=== PATIENT | male | born 1955 | race Caucasian/White ===

== ENCOUNTER 2016-10-05 04:22 | Day surgery (SDC) | payer BC ==
[2016-10-03 09:33] LABS: BASOPHILS 0.2 %; BASOPHILS ABSOLUTE 0.01 10/3/uL (0.0-0.16); EOSINOPHILS 5.7 %; EOSINOPHILS ABSOLUTE 0.29 10/3/uL (0.0-0.53); HEMOGLOBIN 14.5 g/dL (13.6-17.8); IMMATURE GRANULOCYTES 0.2 %; IMMATURE GRANULOCYTES ABSOLUTE 0.01 10/3/uL (0.0-0.11); LYMPHOCYTES 29.8 %; LYMPHOCYTES ABSOLUTE 1.52 10/3/uL (0.67-4.30); MEAN CORPUS HGB CONC 35.2 g/dL (32.0-36.0); MEAN CORPUSCULAR HEMOGLOB 32.2 pg (26.0-34.0); MEAN CORPUSCULAR VOLUME 91.4 fL (80-100); MONOCYTES 5.7 %; MONOCYTES ABSOLUTE 0.29 10/3/uL (0.21-1.20); NEUTROPHILS 58.4 %; NEUTROPHILS ABSOLUTE 2.98 10/3/uL (2.02-8.40); PLATELET COUNT 177 10/3/uL (150-400); RBC DISTRIBUTION WIDTH 13.6 % (12.0-16.0); RED CELL COUNT 4.51 10/6/uL (4.7-6.1); WHITE BLOOD CELLS 5.1 10/3/uL (4.5-10.5)
[2016-10-03 09:35] LABS: HEMATOCRIT 41.2 % (40.0-51.0); MANUAL DIFF NO %
[2016-10-03 10:02] LABS: A/G RATIO 1.2 (0.7-1.9); ALBUMIN 3.9 G/DL (3.5-5.0); ALKALINE PHOSPHATASE 72 U/L (45-117); BUN (BLOOD UREA NITROGEN) 18 MG/DL (6-23); CALCIUM, SERUM 8.8 MG/DL (8.5-10.4); CHLORIDE, SERUM 103 MMOL/L (96-112); CO2 (CARBON DIOXIDE) 31 MMOL/L (24-34); CREATININE 1.17 MG/DL (0.70-1.30); GFR AFRICAN AMERICAN 76 ML/MIN (>=60); GFR NON AFRICAN AMERICAN 66 ML/MIN (>=60); GLOBULIN 3.3 G/DL (2.5-4.1); GLUCOSE, SERUM 118 MG/DL (60-99); POTASSIUM, SERUM 3.5 MMOL/L (3.5-5.3); SGOT(AST) 20 U/L (5-40); SGPT(ALT) 28 U/L (5-65); SODIUM, SERUM 144 MMOL/L (135-148); TOTAL BILIRUBIN 0.7 MG/DL (0-1.2); TOTAL PROTEIN 7.2 G/DL (6.0-8.5)
--- NOTE | ~2016-10-05 | OP ---
Record Of Operation [facility] [address] [place]. [address] NAME: WILLIE ASHLEY : 51 STATUS : [facility]#: [id number] AGE: 61 ADM/REG DATE : 10/05/16 MR#: [id number] REPORT SERV DATE: 10/07/16 DICTATED BY: JAVIER BECERRA DATE: 10/07/16 REPORT STATUS : Draft TRANSCRIBED BY: MODL DATE: 10/07/16 DATE OF PROCEDURE: 10/05/2016 PREOPERATIVE DIAGNOSES: 1. Ventral incisional hernia. 2. Right flank subcutaneous mass. POSTOPERATIVE DIAGNOSES: 1. Ventral incisional hernia. 2. Right flank subcutaneous mass. PROCEDURE PERFORMED: 1. Repair subxiphoid ventral incisional hernia with implantation of mesh. 2. Excision of right flank subcutaneous mass, less than 3 cm. SURGEON: Javier Becerra M.D. ANESTHESIA: General. ESTIMATED BLOOD LOSS: Minimal. SPECIMENS REMOVED: Right flank mass. BRIEF HISTORY: Mr. Ashley is a 61-year-old gentleman, who had an open heart procedure done a number of years ago. He has developed a ventral incisional hernia on the lower aspect of his incision and of course, is below his xiphoid. This has been growing, becoming tender and symptomatic. He presents today for repair. He also has a history of lipomas and has noticed a mass on his right flank that he wishes to have excised as well. DETAILS OF PROCEDURE: Following informed consent, the hernia and the mass were identified and marked in preoperative holding and confirming the proper site and location, the patient was then transferred to operative suite. After successful induction of general endotracheal anesthesia, an incision was made in the lower aspect of his subxiphoid incision overlying the palpable hernia defect. Dissection was carried through the skin and subcutaneous tissues. The hernia sac was clearly defined as was the fascial defect. We the hernia sac from the subcutaneous tissues sharply using Metzenbaum scissors and then reduced the hernia sac and developed a subfascial extraperitoneal plane circumferentially around the defect. Once this was accomplished, we measured the defect and opted to place a Ventralight ST medium ventral patch mesh. This was deployed in subfascial extraperitoneal location. The mesh was secured to the fascia using interrupted Ethibond sutures, and the mesh tabs were also secured to the fascial defect as well and trimmed to appropriate length. Once the mesh was secured to the fascia, it was approximated over the mesh using interrupted 0 Ethibond sutures. The wound was copiously irrigated. The skin edges were reapproximated using 3-0 Vicryl subdermals followed by 4-0 Monocryl subcuticular suture and Dermabond. Next, attention was directed to the right flank mass. An incision was made directly on top of this palpable lesion. Well-encapsulated lipoma was then delivered through the wound and Record Of Operation [address] [address] NAME: WILLIE ASHLEY : 51 STATUS : [facility] PAT#: [id number] AGE: 61 ADM/REG DATE : 10/05/16 MR#: [id number] REPORT SERV DATE: 10/07/16 DICTATED BY: JAVIER BECERRA DATE: 10/07/16 REPORT STATUS : Draft TRANSCRIBED BY: LAYLA DATE: 10/07/16 excised in its gross entirety. Hemostasis was secured with cautery. Skin edges were reapproximated using 3-0 Vicryl subdermals followed by 4-0 Monocryl subcuticular suture and Dermabond. At the completion of the case, all sponge and needle counts were correct. The patient was extubated and transferred to recovery room in satisfactory condition. ISABEL/LAYLA Javier Becerra M.D. / [id number] CC: Javier Becerra M.D.
[~2016-10-05 04:22] MED LIST: ALTA2.5 PO; ASA5GR PO; ASAB PO; BETA PROSTATE; CENTRUM PO; DUONEB INH; FLOMAX4 PO; HCTZ25B PO; HYDROCHLOROT25 MG PO; LEVAQUIN750 MG PO; LOP25 PO; LOP50 PO; PROSTATE VITAMIN PO; T PO
== END 2016-10-05 11:32 | disposition home or self-care (01) ==
LOC: SDC 04:22
PROVIDERS: Surgery
PROC: 0WUF0JZ Supplement Abdominal Wall with Synthetic Substitute, Open Approach (ICD-10-PCS; principal; 2016-10-05 05:45)
PROC: 0JB70ZX Excision of Back Subcutaneous Tissue and Fascia, Open Approach, Diagnostic (ICD-10-PCS; 2016-10-05 05:45)
DX: K43.2 Incisional hernia without obstruction or gangrene (principal); D17.1 Benign lipomatous neoplasm of skin and subcutaneous tissue of trunk; I10 Essential (primary) hypertension; Z79.82 Long term (current) use of aspirin; Z79.899 Other long term (current) drug therapy; Z98.890 Other specified postprocedural states; Z87.442 Personal history of urinary calculi
CPT/HCPCS: 80053; 85025; 87641; 88304; 88307; 93005; J0690; J2250; J2405; J2710; J3010